=== PATIENT | male | born 1965 | race Caucasian/White ===

== ENCOUNTER 2025-04-23 03:04 | Inpatient (IN) | payer MEDICAID ==
[~2025-04-23] VITALS: Ht 170.2 cm; Wt 76.7 kg
[2025-04-23] VITALS (13 sets, daily range): BP systolic 127–136; BP diastolic 71–84; PULSE 89–114; RESP 18–22; TEMP 97.5–98.2; O2SAT 92–99
[2025-04-23] MEDS ORDERED: 0.9% SODIUM CHLORIDE 5 ML NEB SOLUTION NEB ONE (03:14)
[2025-04-23] MEDS ORDERED: AMOX TR/POT CLAV 875 MG/125 MG TABLET PO ONE (03:15)
[2025-04-23] MEDS: IPRATROPIUM BROMIDE 0.5 MG/2.5 ML NEB SOLUTION NEB ONE (03:22)
[2025-04-23] MEDS: ALBUTEROL SULFATE 2.5 MG/0.5 ML NEB SOLUTION NEB ONE (03:22)
[2025-04-23 03:33] LABS: COVID AG,FIA SOURCE NASAL SWAB
[2025-04-23] MEDS ORDERED: PRED-554 PO (03:34)
[2025-04-23] MEDS ORDERED: LEVO750T68 PO (03:34)
[2025-04-23 03:56] LABS: SARS-COV2 (COVID) ANTIGEN,FIA Negative (Negative)
[2025-04-23 03:57] LABS: INFLUENZA TYPE A NEGATIVE FOR TYPE A (NEGATIVE); INFLUENZA TYPE B NEGATIVE FOR TYPE B (NEGATIVE)
[2025-04-23 04:16] LABS: PLATELET COUNT (AUTO) 124 K/uL (150-450); RED BLOOD CELL COUNT(AUTO) 3.69 MIL/uL (4.50-5.90); RED CELL DISTRIBUTION WIDTH 18.2 % (11.5-14.5); WHITE BLOOD COUNT (AUTO) 6.7 K/uL (4.5-11.0)
[2025-04-23 04:24] LABS: CALCIUM, TOTAL 8.5 mg/dL (8.8-10.5); CREATININE 12.92 mg/dL (0.60-1.30); GLOMERULAR FILTR. RATE CALC 4 mL/min (>60); GLUCOSE,RANDOM 100 mg/dL (70-110); SODIUM SERUM 147 mmol/L (136-145); UREA NITROGEN, BLOOD 68 mg/dL (7-18)
[2025-04-23 04:32] LABS: TROPONIN I-HIGH SENSITIVITY 30 ng/L (<76)
[2025-04-23] MEDS ORDERED: 0.9% SODIUM CHLORIDE 15 ML NEB SOLUTION NEB ONE (05:17)
[2025-04-23] MEDS ORDERED: ONDANSETRON HCL 4 MG/2 ML VIAL IVP PRN (13:00)
[2025-04-23] MEDS ORDERED: BISACODYL 10 MG RECTAL RECTAL SUPPOSITORY PR PRN (13:00)
[2025-04-23] MEDS ORDERED: MORPHINE SULFATE 4 MG/ML SYRINGE IVP PRN (13:00)
[2025-04-23] MEDS ORDERED: ZOLPIDEM TARTRATE 5 MG TABLET PO PRN (13:00)
[2025-04-23] MEDS ORDERED: IPRATROPIUM BROMIDE 0.5 MG/2.5 ML NEB SOLUTION NEB PRN (13:00)
[2025-04-23] MEDS ORDERED: ALBUTEROL SULFATE 2.5 MG/0.5 ML NEB SOLUTION NEB PRN (13:00)
[2025-04-23] MEDS ORDERED: MAGNESIUM HYDROXIDE SUSPENSION 30 ML UDCUP PO PRN (13:00)
[2025-04-23] MEDS: IPRATROPIUM BROMIDE 0.5 MG/2.5 ML NEB SOLUTION NEB SCH (14:32)
[2025-04-23] MEDS: ALBUTEROL SULFATE 2.5 MG/0.5 ML NEB SOLUTION NEB SCH (14:33)
[2025-04-23] MEDS: HEPARIN SODIUM,PORCINE 5,000 UNITS/ML VIAL SQ SCH (16:00)
[2025-04-23] MEDS: DOCUSATE SODIUM 100 MG CAPSULE PO SCH (20:31)
[2025-04-24] VITALS (36 sets, daily range): BP systolic 90–139; BP diastolic 58–89; PULSE 76–115; RESP 18–20; TEMP 97.3–98.2; O2SAT 81–99
[2025-04-24] MEDS: -HEMODIALYSIS NOTE- MISC SCH (04:00)
[2025-04-24] MEDS: MIDODRINE HCL 5 MG TABLET PO PRN (04:00)
[2025-04-24] MEDS ORDERED: SODIUM CHLORIDE 0.9% 1,000 ML ONE ×2 (04:08→08:34)
[2025-04-24] MEDS: FLUTICASONE PROPIONATE 50 MCG/SPRAY 16 GM NASAL SPRAY NASAL SCH (05:15)
[2025-04-24] MEDS: PANTOPRAZOLE SODIUM 40 MG DR TABLET PO SCH (08:16)
[2025-04-25] VITALS (17 sets, daily range): BP systolic 104–132; BP diastolic 67–76; PULSE 87–103; RESP 18–20; TEMP 97.3–98.1; O2SAT 92–99
[2025-04-25 07:58] LABS: ASPARTATE AMINOTRANSFERASE 13.0 U/L (15-37); CALCIUM, TOTAL 8.9 mg/dL (8.8-10.5); CREATININE 10.45 mg/dL (0.60-1.30); GLOMERULAR FILTR. RATE CALC 5.0 mL/min (>60); GLUCOSE,RANDOM 122.0 mg/dL (70-110); SODIUM SERUM 138.0 mmol/L (136-145); TOTAL PROTEIN, SERUM 7.2 g/dL (6.4-8.2); UREA NITROGEN, BLOOD 60.0 mg/dL (7-18)
[2025-04-25] MEDS ORDERED: IODIXANOL 320 MG/ML 50 ML VIAL ONE (10:22)
[2025-04-25] MEDS ORDERED: LIDOCAINE/PF 1% 30 ML VIAL ONE (10:22)
[2025-04-25] MEDS ORDERED: SODIUM BICARBONATE 50 MEQ/50 ML VIAL ONE (10:22)
[2025-04-25] MEDS ORDERED: FentaNYL CITRATE PF 100 MCG/2 ML VIAL ONE (10:39)
[2025-04-25] MEDS ORDERED: MIDAZOLAM HCL 2 MG/2 ML VIAL ONE (10:39)
[2025-04-25] MEDS ORDERED: LIDOCAINE 1%/EPI 1:200,000/PF 10 ML VIAL ONE (10:41)
[2025-04-25] MEDS: ALTEPLASE 2 MG VIAL/STERILE WATER IVCATH ONE (11:37)
[2025-04-25] MEDS: LIDOCAINE 1% 30 ML/SOD BICARB 8.4% 4 ML SQ ONE (11:41)
[2025-04-25] MEDS: SODIUM CHLORIDE 0.9% 500 ML IV ONE (11:42)
[2025-04-26] VITALS (18 sets, daily range): BP systolic 105–134; BP diastolic 51–84; PULSE 83–110; RESP 16–22; TEMP 97.3–98.2; O2SAT 93–99
[2025-04-26] MEDS ORDERED: SODIUM CHLORIDE 0.9% 2,000 ML ONE (12:04)
[2025-04-26] MEDS: PROCHLORPERAZINE EDISYLATE 5 MG/ML 2 ML VIAL IVP ONE (14:46)
[2025-04-26] MEDS: HEPARIN SODIUM,PORCINE 1,000 UNITS/ML VIAL IVCATH ONE ×2 (15:37)
[2025-04-26] MEDS: OxyCODONE HCL/ACETAMINOPHEN 5-325 MG TABLET PO PRN (16:47)
[2025-04-26] MEDS: LORazepam 2 MG/ML VIAL IVP ONE (18:22)
[2025-04-27] VITALS (23 sets, daily range): BP systolic 90–146; BP diastolic 69–100; PULSE 86–122; RESP 18–29; TEMP 97.7–98.1; O2SAT 94–100
[2025-04-27] MEDS ORDERED: HEPARIN SODIUM,PORCINE 1,000 UNITS/ML VIAL IVP ONE (07:46)
[2025-04-27] MEDS ORDERED: ALBUTEROL SULFATE 2.5 MG/0.5 ML NEB SOLUTION NEB ONE (12:35)
[2025-04-27] MEDS ORDERED: HEPARIN SODIUM,PORCINE 1,000 UNITS/ML VIAL ONE (12:35)
[2025-04-27] MEDS: LORazepam 2 MG/ML VIAL IVP PRN (14:30)
[2025-04-27] MEDS ORDERED: SODIUM CHLORIDE 0.9% 2,000 ML ONE (15:03)
[2025-04-27] MEDS: FOLIC ACID/VIT B COMPLEX AND C TABLET PO SCH (15:07)
[2025-04-27 16:11] LABS: PLATELET COUNT (AUTO) 159 K/uL (150-450); RED BLOOD CELL COUNT(AUTO) 3.95 MIL/uL (4.50-5.90); RED CELL DISTRIBUTION WIDTH 17.4 % (11.5-14.5); WHITE BLOOD COUNT (AUTO) 5.6 K/uL (4.5-11.0)
[2025-04-27 16:22] LABS: CALCIUM, TOTAL 8.2 mg/dL (8.8-10.5); CREATININE 11.13 mg/dL (0.60-1.30); GLOMERULAR FILTR. RATE CALC 5.0 mL/min (>60); GLUCOSE,RANDOM 132.0 mg/dL (70-110); SODIUM SERUM 140.0 mmol/L (136-145); UREA NITROGEN, BLOOD 83.0 mg/dL (7-18)
[2025-04-27 16:27] LABS: ASPARTATE AMINOTRANSFERASE 26.0 U/L (15-37); TOTAL PROTEIN, SERUM 6.8 g/dL (6.4-8.2)
[2025-04-27] MEDS: LORazepam 2 MG/ML VIAL IVP ONE (16:43)
[2025-04-27 17:41] LABS: ABG BASE EXCESS -0.1 mmol/L (-2.0-3.0); ABG CARBOXYHEMOGLOBIN 1.0 % (0.5-1.5); ABG HCO3 23.8 mmol/L (21.0-28.0); ABG METHEMOGLOBIN 0.1 % (0.0-1.5); ABG OXYGEN CONTENT 18.0 mL/dL (15.0-23.0); ABG OXYGEN SATURATION 99.5 % (94.0-98.0); ABG OXYHEMOGLOBIN 98.4 % (94.0-98.0); ABG PCO2 53 mmHg (32.0-48.0); ABG PH 7.310 (7.350-7.450); ABG TOTAL HEMOGLOBIN 12.7 G/dL (13.5-17.5); FRACTIONATED INSPIRED OXYGEN 100.0 % (21-100.0); PO2, ARTERIAL BG 185.8 mmHg (83.0-108.0); SOURCE, BLOOD GAS ARTERIAL; TEMPERATURE, FAHRENHEIT, BG 98.1 FAHREN (96.0-98.6)
[2025-04-27 17:42] LABS: ALLEN TEST, BLOOD GAS POS; O2 DEVICE,BLOOD GAS BIPAP (ROOM AIR); SET RATE, BG 20.0 min.; SITE, BLOOD GAS RT RADIAL
[2025-04-27 17:44] LABS: PATIENT RATE, BG 25.0 min.
[2025-04-27] MEDS: SEVELAMER CARBONATE 800 MG TABLET PO SCH (18:00)
[2025-04-27] MEDS: ALBUMIN HUMAN 25%-12.5GM/50ML IV BOTTLE IV PRN (20:36)
[2025-04-27] MEDS: HEPARIN SODIUM,PORCINE 1,000 UNITS/ML VIAL IVCATH ONE ×2 (20:36)
[2025-04-28] VITALS (16 sets, daily range): BP systolic 114–142; BP diastolic 64–98; PULSE 85–99; RESP 17–20; TEMP 97.9–98.2; O2SAT 92–100
[2025-04-28] MEDS: ACETAMINOPHEN 325 MG TABLET PO PRN (08:32)
[2025-04-28] MEDS: SODIUM ZIRCONIUM CYCLOSILICATE 5 GM POWDER PACKET PO ONE (09:38)
[2025-04-28 15:19] LABS: PLATELET COUNT (AUTO) 152 K/uL (150-450); RED BLOOD CELL COUNT(AUTO) 4.10 MIL/uL (4.50-5.90); RED CELL DISTRIBUTION WIDTH 16.5 % (11.5-14.5); WHITE BLOOD COUNT (AUTO) 8.4 K/uL (4.5-11.0)
[2025-04-28 15:26] LABS: CALCIUM, TOTAL 8.8 mg/dL (8.8-10.5); CREATININE 10.1 mg/dL (0.60-1.30); GLOMERULAR FILTR. RATE CALC 5.0 mL/min (>60); GLUCOSE,RANDOM 215.0 mg/dL (70-110); SODIUM SERUM 137.0 mmol/L (136-145); UREA NITROGEN, BLOOD 76.0 mg/dL (7-18)
[2025-04-28 15:37] LABS: RBC MORPHOLOGY COMMENT NORMAL RBC MORPH
[2025-04-29] VITALS (14 sets, daily range): BP systolic 118–138; BP diastolic 70–95; PULSE 84–110; RESP 14–20; TEMP 97.7–98.1; O2SAT 91–99
[2025-04-29 07:38] LABS: CALCIUM, TOTAL 8.8 mg/dL (8.8-10.5); CREATININE 12.11 mg/dL (0.60-1.30); GLOMERULAR FILTR. RATE CALC 4.0 mL/min (>60); GLUCOSE,RANDOM 128.0 mg/dL (70-110); SODIUM SERUM 137.0 mmol/L (136-145); UREA NITROGEN, BLOOD 98.0 mg/dL (7-18)
[2025-04-29] MEDS: SODIUM ZIRCONIUM CYCLOSILICATE 10 GM POWDER PACKET PO ONE (08:29)
[2025-04-29 09:16] LABS: PLATELET COUNT (AUTO) 161 K/uL (150-450); RED BLOOD CELL COUNT(AUTO) 3.99 MIL/uL (4.50-5.90); RED CELL DISTRIBUTION WIDTH 16.7 % (11.5-14.5); WHITE BLOOD COUNT (AUTO) 8.4 K/uL (4.5-11.0)
[2025-04-30] VITALS (18 sets, daily range): BP systolic 135–156; BP diastolic 72–87; PULSE 78–110; RESP 16–20; TEMP 97.5–98.1; O2SAT 92–100
[2025-04-30 06:28] LABS: PLATELET COUNT (AUTO) 168 K/uL (150-450); RED BLOOD CELL COUNT(AUTO) 3.81 MIL/uL (4.50-5.90); RED CELL DISTRIBUTION WIDTH 16.5 % (11.5-14.5); WHITE BLOOD COUNT (AUTO) 10.5 K/uL (4.5-11.0)
[2025-04-30 06:38] LABS: CALCIUM, TOTAL 8.9 mg/dL (8.8-10.5); CREATININE 14.84 mg/dL (0.60-1.30); GLOMERULAR FILTR. RATE CALC 3.0 mL/min (>60); GLUCOSE,RANDOM 161.0 mg/dL (70-110); SODIUM SERUM 137.0 mmol/L (136-145)
[2025-04-30 07:33] LABS: UREA NITROGEN, BLOOD 126.0 mg/dL (7-18)
[2025-04-30] MEDS ORDERED: SODIUM BICARBONATE 50 MEQ/50 ML VIAL ONE (07:34)
[2025-04-30] MEDS ORDERED: LIDOCAINE/PF 1% 30 ML VIAL ONE (07:34)
[2025-04-30] MEDS ORDERED: HEPARIN SODIUM,PORCINE 1,000 UNITS/ML VIAL ONE (12:00)
[2025-04-30] MEDS: SODIUM ZIRCONIUM CYCLOSILICATE 10 GM POWDER PACKET PO ONE (18:22)
[2025-04-30] MEDS: HEPARIN SODIUM,PORCINE 1,000 UNITS/ML VIAL IVCATH ONE ×2 (19:00)
[2025-05-01] VITALS (12 sets, daily range): BP systolic 138–154; BP diastolic 78–93; PULSE 83–105; RESP 18–20; TEMP 97.5–98.2; O2SAT 91–100
[2025-05-01 07:05] LABS: CALCIUM, TOTAL 8.5 mg/dL (8.8-10.5); CREATININE 16.96 mg/dL (0.60-1.30); GLOMERULAR FILTR. RATE CALC 3.0 mL/min (>60); GLUCOSE,RANDOM 116.0 mg/dL (70-110); SODIUM SERUM 138.0 mmol/L (136-145)
[2025-05-01 07:39] LABS: UREA NITROGEN, BLOOD 157.0 mg/dL (7-18)
[2025-05-01] MEDS ORDERED: DEXTROSE 50%-WATER 25 GM/50 ML SYRINGE IVP ONE (08:15)
[2025-05-01] MEDS: INSULIN REGULAR, HUMAN 100 UNITS/ML IVP ONE (08:37)
[2025-05-01] MEDS: DEXTROSE 50%-WATER 25 GM/50 ML SYRINGE IVP ONE (08:38)
[2025-05-01] MEDS: CALCIUM GLUCONATE 100 MG/ML 10 ML IVP ONE (08:41)
[2025-05-01] MEDS: SODIUM ZIRCONIUM CYCLOSILICATE 10 GM POWDER PACKET PO ONE (08:55)
[2025-05-01] MEDS: SODIUM POLYSTYRENE SULFONATE 15 GM/60 ML SUSPENSION BOTTLE PO ONE (10:37)
[2025-05-01] MEDS ORDERED: FOLI0.4T6 PO (14:51)
[2025-05-01] MEDS ORDERED: FLUT16SP NASAL (14:51)
[2025-05-01] MEDS ORDERED: SEVE800T24 PO (14:52)
[2025-05-01] MEDS ORDERED: MIDO5TAB29 PO (14:53)
[2025-05-01] MEDS ORDERED: FLUT1BLS19 IH (14:53)
[2025-05-01] MEDS ORDERED: ALBU18HF12 IH (14:54)
[2025-05-01] MEDS ORDERED: PRED-554 PO (14:55)
[2025-05-01] MEDS ORDERED: FOLI0.8T54 PO (15:54)
== END 2025-05-01 17:35 | disposition home or self-care (01) | DRG 206 ==
LOC: EMS 03:22 → EDH 04:40 → 5N 06:15
PROVIDERS: ADMIT Hospitalist; ATTEND Hospitalist
PROC: 5A1D70Z Performance of Urinary Filtration, Intermittent, Less than 6 Hours Per Day (ICD-10-PCS; 2025-04-24)
PROC: 05HM33Z Insertion of Infusion Device into Right Internal Jugular Vein, Percutaneous Approach (ICD-10-PCS; 2025-04-25)
PROC: B5131ZA Fluoroscopy of Right Jugular Veins using Low Osmolar Contrast, Guidance (ICD-10-PCS; 2025-04-25)
PROC: 5A1D70Z Performance of Urinary Filtration, Intermittent, Less than 6 Hours Per Day (ICD-10-PCS; 2025-04-26)
PROC: 5A09357 Assistance with Respiratory Ventilation, Less than 24 Consecutive Hours, Continuous Positive Airway Pressure (ICD-10-PCS; principal; 2025-04-27)
PROC: 5A1D70Z Performance of Urinary Filtration, Intermittent, Less than 6 Hours Per Day (ICD-10-PCS; 2025-04-27)
DX: T82.868A Thrombosis due to vascular prosthetic devices, implants and grafts, initial encounter (principal); J96.01 Acute respiratory failure with hypoxia; D69.6 Thrombocytopenia, unspecified; E87.0 Hyperosmolality and hypernatremia; N18.6 End stage renal disease; I50.30 Unspecified diastolic (congestive) heart failure; D63.1 Anemia in chronic kidney disease; Z99.2 Dependence on renal dialysis; J44.1 Chronic obstructive pulmonary disease with (acute) exacerbation; E87.70 Fluid overload, unspecified; E87.5 Hyperkalemia; F41.9 Anxiety disorder, unspecified; Y71.2 Prosthetic and other implants, materials and accessory cardiovascular devices associated with adverse incidents; I95.9 Hypotension, unspecified; Y83.2 Surgical operation with anastomosis, bypass or graft as the cause of abnormal reaction of the patient, or of later complication, without mention of misadventure at the time of the procedure; Z20.822 Contact with and (suspected) exposure to COVID-19; N25.81 Secondary hyperparathyroidism of renal origin; Z53.9 Procedure and treatment not carried out, unspecified reason; Z87.891 Personal history of nicotine dependence; Z88.0 Allergy status to penicillin
CPT/HCPCS: 36245; 36556; 71045; 76000; 80048; 80053; 82805; 83880; 84132; 84484; 85025; 87340; 87804; 90935; 93005; 94640; 94660; 94760; 96374; 97116; 97163; 99285; J0610; J0780; J1200; J1644; J1815; J2060; J2250; J2919; J2997; J3010; J3490; J7030; Q9967; 36415-L1; 36415-TC; J7613